=== PATIENT | male | born 1965 | race Asian ===

== ENCOUNTER → 2020-05-20 07:36 | Outpatient (CLI) | payer OTHER, SELFPAY ==
--- NOTE | 2020-05-20 | DI.MRI.S_ITS ---
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 After the administration of contrast, axial 3D VIBE of the cranial vasculature and brain. Brain MRA: Non-contrast 3-D time of flight MR angiogram, with multiple molrltz-ifebqvvgz-ayenfwkero (MIP) reformats performed. Neck MRA: Axial and sagittal TruFISP through the neck. Coronal dynamic MR angiogram during administration of contrast in the arterial and venous phases, with 3-dimenstional uihxjmw-ysdasbuqi-rzwqzelsyh (MIP) reformats constructed from subtraction images. COMPARISON: None. FINDINGS: Image quality: Excellent. BRAIN: CSF spaces: Ventricles are normal in size and shape. Basal cisterns are patent. No extra-axial fluid collections. Brain: Focus of increased T1 and increased T2 signal in the right aspect of the brainstem at the pontomedullary junction compatible with subacute hemorrhage (extracellular methemoglobin). Brainstem bleed measures approximately 0.8 x 1.0 x 1.5 cm. Parekh-white matter interface is normal. Diffusion weighted images show no acute ischemic insults. Brainstem appears normal. Normal intravascular flow voids are present. No abnormal intracranial enhancement. Skull and face: Calvarial marrow signal is normal. Orbits appear normal. Sinuses: Sinuses are clear. Fluid signal noted in the right mastoid air cells. BRAIN MR ANGIOGRAM: Anterior circulation: Intracranial internal carotid arteries are normal in size and enhancement. The flow within the paired anterior cerebral arteries is normal and symmetric. The flow within the middle cerebral arteries is normal and symmetric. The anterior communicating artery is seen. No stenoses, occlusions, or aneurysms. Posterior circulation: The visualized portions of the vertebral arteries demonstrate normal caliber, and join to form a normal appearing basilar artery. The flow within the posterior cerebral arteries is normal and symmetric. No stenoses, occlusions, or aneurysms. NECK MR ANGIOGRAM: Carotids: Great vessels demonstrate a conventional anatomy as they arise from the aortic arch. The origins of the common carotid arteries appear patent. The calibers and courses of both common carotid arteries are normal. The bifurcation regions appear normal bilaterally. The internal carotid arteries demonstrate normal course and caliber. Posterior circulation: The origins of the vertebral arteries appear patent. More superior portions of both vertebral arteries demonstrate normal course and caliber, and join to form a normal appearing basilar artery. Miscellaneous: Subclavian arteries appear patent. Pre-contrast images through the neck show no soft tissue abnormalities. IMPRESSION: BRAIN MRI: 1. 0.8 x 1.0 1.5 cm late subacute bleed involving the right brainstem at the pontomedullary junction. Differential diagnosis for underlying cause of bleed includes infarct with hemorrhagic transformation, underlying vascular malformation including cavernous angioma and underlying neoplasm. Recommend follow up MRI of the brain with and without contrast and 1-3 months if clinically indicated. 2. Nonspecific fluid in the right mastoid air cells. BRAIN MR ANGIOGRAM: Negative examination. NECK MR ANGIOGRAM: Negative examination. Dictated by: Chiquita Ho MD, PhD on 05/20/2020 at 11:45 Approved by: Chiquita Ho MD, PhD on 05/20/2020 at 11:58
== END ==
PROVIDERS: Referring Provider General Practice; Visit Provider General Practice
DX: I61.3 Nontraumatic intracerebral hemorrhage in brain stem (principal)
CPT/HCPCS: 70548; 70553

== ENCOUNTER → 2021-09-06 11:04 | Outpatient (CLI) | payer OTHER, SELFPAY ==
[2021-09-06 11:49] LABS: Add Manual Diff / Slide Review NO; Basophils Absolute Auto 100 /uL (0-100); Basophils Percent Auto 1.2 % (0-2); Eosinophils Absolute Auto 500 /uL (0-450); Eosinophils Percent Auto 6.7 % (2-4); Hematocrit 46.9 % (41-53); Hemoglobin 15.9 g/dL (13.5-17.5); Lymphocytes Absolute Auto 1700 /uL (1100-4500); Lymphocytes Percent Auto 22.9 % (25-40); Mean Corpuscular HGB Conc 33.9 % (30-36); Mean Corpuscular Hemoglobin 29.3 PG (26-34); Mean Corpuscular Volume 86.2 fL (80-100); Monocytes Absolute Auto 500 /uL (0-900); Monocytes Percent Auto 7.2 % (3-14); Neutrophils Absolute Auto 4700 /uL (1500-7000); Platelet Count 190 X10^3/uL (150-400); Red Blood Cell Count 5.44 X10^6/uL (4.5-5.9); Red Cell Distribution Width 13.2 % (11.6-14.8); White Blood Cell Count 7.5 X10^3/uL (4.5-11.0)
[2021-09-06 12:07] LABS: Carbon Dioxide 26 mmol/L (22-32); Chloride 103 mmol/L (98-107); HEMOLYSIS < 15 (0-50); Potassium 4.2 mmol/L (3.4-5.1); Sodium 141 mmol/L (137-145)
== END ==
PROVIDERS: PCP Physician Assistant; Referring Provider Orthopaedic Surgery; Visit Provider Orthopaedic Surgery
DX: Z01.818 Encounter for other preprocedural examination (principal); Z01.812 Encounter for preprocedural laboratory examination
CPT/HCPCS: 36415; 80051; 85025; 93005; 93010

== ENCOUNTER → 2021-09-22 11:16 | Outpatient (CLI) | payer OTHER, SELFPAY ==
[2021-09-22 13:41] LABS: COVID19 -Nasal RAPID Negative (Negative)
== END ==
PROVIDERS: PCP Physician Assistant; Visit Provider Nurse Practitioner Family
DX: Z20.822 Contact with and (suspected) exposure to COVID-19 (principal)
CPT/HCPCS: 87635

== ENCOUNTER 2021-09-23 08:34 | Observation (INO) | payer OTHER, SELFPAY ==
[2021-09-16 07:28] VITALS: BMI 35.2
[2021-09-23] VITALS (21 sets, daily range): BP systolic 91–144; BP diastolic 48–99; PULSE 61–98; RESP 8–23; TEMP 35.8–36.7; O2SAT 96–99; BMI 35.2
[2021-09-23] MEDS: LACTATED RINGERS 1,000 ML 42 ML IV ×2 (09:33→11:32)
--- NOTE | 2021-09-23 09:55 | PM.PREOP ---
Pre-operative Note COVID-19 COVID-19 status: Negative Interval Note History & Physical reviewed/Exam performed by Physician: Yes Changes to H&P: No
--- NOTE | 2021-09-23 09:57 | P.OP_ITS ---
Operative Date/Time/Diagnoses Date of procedure: 09/23/21 Time of procedure: 12:26 Pre-op diagnosis: Left knee osteoarthritis Post-op diagnosis: same Procedure & Clinicians Procedure: Left total knee arthroplasty Same procedure as scheduled: Yes Indications: The patient presents today for total knee arthroplasty after failure of conservative treatment. The nature of the procedure including the risks and benefits, alternatives, postoperative course and expected outcome were discussed and all questions answered. Consent was obtained. Operative site confirmed and marked. Surgeon: Alex Guillen New Car Inspector: Brennan Lomeli Anesthesia Type: General, Peripheral nerve block and Local Operative Notes Closure Type: primary Specimen(s): none sent Prosthetic devices, grafts, tissues, transplants, or devices: [facility] [employer] [facility] BCS: 4 femoral component, 3 tibial component, 9 mm BCS polyethylene tray and 35x9 mm round patella Applied: implant(s) Estimated Blood Loss (mL): 20 Blood products transfused: none Tourniquet time (min): 74 Procedure in detail: The patient was taken to the operative suite and placed under anesthesia. The patient was given prophylactic antibiotics prior to surgery. The patient was also given tranexamic acid, 1 g, just prior to surgery for postoperative hemostasis. The lateral knee was prepped and the joint injected with 20 mL of 1% Lidocaine with epinephrine. The knee was then prepped and draped in usual sterile fashion. The leg was exsanguinated with an Esmarch dressing and the tourniquet raised to 350 torr. A 15 cm anterior incision was made. Next a medial trivector arthrotomy was made. The extensor mechanism was marked to ensure accurate repair. Initial exposing dissection was carried out medially and laterally. The knee was then flexed and the intramedullary femoral guide rhea placed. The distal femoral cut was made in 6? of valgus at the +1 position. The femoral size was measured and the appropriate cutting block was then placed and the a nterior, posterior and chamfer cuts made. The intramedullary tibial alignment rhea was then placed. The guide was set to remove approximately 10 mm from the less affected lateral side. The proximal tibial cut was then made with an oscillating saw. All meniscus and bony debris was then removed. Posterior femoral osteophytes removed with a curved osteotome. Flexion extension gaps were checked. There was mild tightness medially which was corrected with percutaneous release of the MCL with an 18 gauge needle. This was in addition to standard soft tissue releases. The soft tissues were then injected with a combination of 20 mL of half percent Marcaine with epinephrine and 20 mL of Exparel. The trial components were then placed. The knee was then extended and the patellar thickness was measured and a cut made removing approximately 11 mm of bone. The patella was then sized and drilled. Some excess lateral bone was excised and the patellofemoral ligament released. The knee went into full extension and flexion beyond 130?. There was excellent medial-lateral balance throughout motion. Patellar tracking was excellent. The trial components were removed and the knee was cleansed with Pulsavac irrigation and dried. The final components were cemented with high viscosity vacuum mixed bone cement with antibiotics. The joint was filled with a dilute Betadine solution. The knee was held in extension and the patellar clamped until the cement was adequately cured. The knee was then irrigated. The extensor mechanism was closed with 5 interrupted #1 Vicryl sutures and a running Quill suture at approximately 90 degrees of flexion. The joint was then injected with a combination of 1 g of tranexamic acid and 20 mL of quarter percent Marcaine with epinephrine. The subcutaneous tissue was closed with 2 0 Vicryl. The skin was closed with absorbable subcuticular sutures and surgical adhesive. An Aquacel dressing and Juan Francisco wrap were then applied. The patient tolerated the procedure well and was returned to recovery room in good condition. Complications: none Post-operative Condition: stable Disposition: PACU Plan for aftercare: [facility] Protocol.
[2021-09-23] MEDS: MIDAZOLAM 2 MG/2 ML VIAL IV ×2 (10:05→10:49)
[2021-09-23] MEDS: fentaNYL 100 MCG/2 ML INJ 50 MCG IV ×2 (10:05→10:10)
--- NOTE | 2021-09-23 10:15 | DI.RAD.S_ITS ---
PROCEDURE: XR KNEE LT 1TO2V INDICATIONS: post op left toTal k-nee TECHNIQUE: 2 view(s) of the knee acquired. COMPARISON: May 25, 2020. FINDINGS: Bones: Patient is status post knee joint arthroplasty. Hardware components are in expected positions. Visualized bony structures are intact. Soft tissues: Overlying postoperative changes are noted. IMPRESSION: No acute osseous abnormality. Dictated by: Clive Rowan M.D. on 09/23/2021 at 13:30 Approved by: Clive Rowan M.D. on 09/23/2021 at 13:32
[2021-09-23] MEDS: PREGABALIN 75 MG CAPSULE PO (10:25)
[2021-09-23] MEDS: ACETAMINOPHEN 325 MG TABLET 975 MG PO (10:25)
[2021-09-23] MEDS: CELECOXIB 200 MG CAPSULE PO (10:25)
--- NOTE | 2021-09-23 10:33 | SUR.PREOP ---
1005 pt time out done for adductor canal nerve block with Dr Acosta Anesthesiologist. Pt on monior with alarms on,02 at 2l/nc, emergency equipment at bedside.
[2021-09-23] MEDS: CEFAZOLIN 1 GM VIAL 2 GM IV ×2 (10:47→19:01)
[2021-09-23] MEDS: TRANEXAMIC ACID 1,000 MG VIAL 1000 MG INJ (10:50)
[2021-09-23] MEDS: LIDOCAINE 1% W/EPI 20 ML INJ (11:05)
--- NOTE | 2021-09-23 11:10 | SUR.OPER ---
Supine on padded OR bed. Pillow under head, arms secured on padded armboards <90 degree abduction. Safety belt across torso. Non-operative leg secured with tape over blanket over lower leg. Operative leg secured in Buddy positioner. Foam padded brace at thigh of operative leg.
[2021-09-23] MEDS: BUPIVACAINE 0.25% W/ EPI (PF) 40 ML, BUPIVACAINE LIPOSOME 266 MG, SODIUM CHLORIDE 0.9% ... INJ (11:19)
[2021-09-23] MEDS: BUPIVACAINE 0.25% W/ EPI (PF) 20 ML, TRANEXAMIC ACID 1,000 MG, SODIUM CHLORIDE 0.9% 10 ML INJ (11:23)
[2021-09-23] MEDS: SODIUM CHLORIDE IRRIG SOLUTION 250 ML, POVIDONE-IODINE SPONGE STICKS 1 APPLIC IRR (11:27)
[2021-09-23] MEDS: LACTATED RINGERS 1,000 ML 100 ML IV ×2 (13:57→21:56)
[2021-09-23] MEDS: ONDANSETRON 4 MG/2 ML INJ IV ×2 (14:10→19:08)
--- NOTE | 2021-09-23 14:53 | PC.NURSE ---
1400- This student nurse was at patient's bedside explaining IS when he reported being nauseous. He began to dry heave and vomit a tiny amount of clear fluid. Per XU and RN Jacqueline 4 mg of IV Zofran was given. His gown was changed. Call light is within reach.
--- NOTE | 2021-09-23 14:55 | PC.ADMIT ---
[address] Admission Note: The patient,Flip Lee,55 y/o, was given written information regarding hospital policies, unit procedures and contact persons. Patient's smoking status: Never smoker. Pt arrived from PACU. Drowsy but oriented. Denies pain, rates numbness to BLE around knee area and below. Able to wiggle legs slightly. PPP. SCD's on and running. Oriented to room and call system. Bed alarm on. 1400: Pt reports nausea with vomiting, Zofran given. Vital Signs - 8 hr 09/23/21 09:05 09/23/21 10:05 09/23/21 10:10 Temperature 97.5 F L Pulse Rate 88 98 H 85 Respiratory Rate 16 23 8 L Blood Pressure 144/99 H 142/88 H 117/83 Pulse Oximetry 98 98 98 09/23/21 10:15 09/23/21 10:20 09/23/21 10:25 Temperature Pulse Rate 85 83 87 Respiratory Rate 13 12 18 Blood Pressure 122/85 129/86 137/98 H Pulse Oximetry 97 96 97 09/23/21 12:45 09/23/21 12:50 09/23/21 12:55 Temperature 96.6 F L Pulse Rate 75 81 74 Respiratory Rate 15 15 16 Blood Pressure 91/48 L 102/61 92/58 L Pulse Oximetry 98 96 96 09/23/21 13:00 09/23/21 13:05 09/23/21 13:10 Temperature 96.8 F L Pulse Rate 72 76 65 Respiratory Rate 15 16 14 Blood Pressure 103/69 97/63 104/62 Pulse Oximetry 97 99 97 09/23/21 13:15 09/23/21 13:21 09/23/21 13:30 Temperature 96.4 F L Pulse Rate 64 78 76 Respiratory Rate 15 16 20 Blood Pressure 98/66 112/73 105/75 Pulse Oximetry 97 98 98 09/23/21 14:00 09/23/21 14:30 Temperature 96.4 F L 96.8 F L Pulse Rate 61 77 Respiratory Rate 20 20 Blood Pressure 120/83 105/71 Pulse Oximetry 98 97
[2021-09-23] MEDS: ACETAMINOPHEN 325 MG TABLET 650 MG PO ×2 (15:49→21:52)
[2021-09-23] MEDS: OXYCODONE IR 10 MG TABLET PO ×2 (16:28→19:10)
[2021-09-23] MEDS: ATORVASTATIN 20 MG TABLET 10 MG PO (21:52)
[2021-09-23] MEDS: DOCUSATE 100 MG CAPSULE PO (21:52)
[2021-09-23] MEDS: METFORMIN HCL 500 MG TABLET PO (21:53)
[2021-09-23] MEDS: ASPIRIN EC 81 MG TABLET PO (21:53)
[2021-09-24] VITALS (9 sets, daily range): BP systolic 141–167; BP diastolic 92–104; PULSE 94–115; RESP 16–18; TEMP 36.7–37.2; O2SAT 93–97
[2021-09-24] MEDS: OXYCODONE IR 10 MG TABLET PO ×4 (00:17→08:39)
[2021-09-24] MEDS: CEFAZOLIN 1 GM VIAL 2 GM IV (03:09)
[2021-09-24 05:38] LABS: Hematocrit 41.8 % (41-53); Hemoglobin 14.2 g/dL (13.5-17.5)
[2021-09-24] MEDS: PANTOPRAZOLE DR 20 MG TABLET PO (06:06)
--- NOTE | 2021-09-24 07:43 | PM.DS.1 ---
History of Present Illness History of Present Illness Date Patient Seen: 09/24/21 Time Patient Seen: 07:43 Chief complaint: Left knee pain s/p left TKA Narrative: The patient is complaining of moderate to severe left knee pain, which he rates 7 to 9/10. He is using oxycodone and Tylenol as needed. He needs to be cleared by Physical therapy. He denies any new numbness or tingling. No known fevers, chills, night sweats. Nausea and vomiting have resolved. Discharge Providers Provider Discharge Date: 09/24/21 Primary care physician: Duke Barr PA-C Consults: 09/23/21 13:37 Consult to Discharge Planning Routine Comment: Consult to Physical Therapy Evaluate & Treat Comment: Physician Instructions: postop TKA protocol Consult to Respiratory Therapy Evaluate & Treat Comment: Physician Instructions: Evaluate and treat Discharge provider: Dayanara Willis PA-C Summary Hospital Course Discharge Diagnosis: Left knee osteoarthritis Hospital Course: Date of procedure: 09/23/21 Time of procedure: 12:26 Procedure & Clinicians Procedure: Left total knee arthroplasty Same procedure as scheduled: Yes Indications: The patient presents today for total knee arthroplasty after failure of conservative treatment.? The nature of the procedure including the risks and benefits, alternatives, postoperative course and expected outcome were discussed and all questions answered.? Consent was obtained.? Operative site confirmed and marked. Surgeon: Alex Guillen Solution Specialist: Brennan Lomeli Anesthesia Type: General, Peripheral nerve block and Local Operative Notes Closure Type: primary Specimen(s): none sent Prosthetic devices, grafts, tissues, transplants, or devices: [employer] [facility] BCS: 4 femoral component, 3 tibial component, 9 mm BCS polyethylene tray and 35x9 mm round patella Applied: implant(s) Estimated Blood Loss (mL): 20 Blood products transfused: none Tourniquet time (min): 74 Status at Discharge Cognitive/behavioral status at discharge: oriented Functional status at discharge: uses cane/walker Overall status at discharge: patient is progressing back to baseline Exam Vital Signs (past 8 hours): - 09/24/21 00:23 09/24/21 05:00 Temperature 98.6 F 99.0 F Pulse Rate 96 H 94 H Respiratory Rate 16 16 Blood Pressure 145/94 H 145/98 H Pulse Oximetry 97 95 Oxygen Delivery Method Room Air,CPAP Oxygen Flow Rate 0 Narrative Exam Narrative: Pleasant 55-year-old male, resting comfortably in bed, no acute distress. Dressing is clean, dry, intact. Bilateral lower extremity motor functions are grossly intact. Sensation is grossly intact to light touch bilateral lower extremities. Bilateral calves are soft, nontender to palpation. Objective Labs Result Diagrams: 09/24/21 04:42 Labs: Laboratory Results - last 24 hr 09/24/21 04:42 Hgb 14.2 Hct 41.8 PFSH Medical History Cerebral cavernous malformation Encephalomalacia GERD (gastroesophageal reflux disease) HLD (hyperlipidemia) HTN (hypertension) ICH (intracerebral hemorrhage) (05/2020) Nasal polyps DIANNE on CPAP Osteoarthritis Pre-diabetes Surgical History Hx of arthroscopy of left knee Hx of arthroscopy of right knee Hx of bilateral cataract extraction Hx of tooth extraction (~05/2021) Social History household members: spouse and children Smoking Status: Never smoker alcohol intake: current Discharge Assessment & Plan Assessment and Plan Assessment: Stable status post left total knee arthroplasty Plan of Treatment: -mobilize with PT. weightbearing as tolerated with front wheel walker -continue with current pain regimen and DVT prophylaxis -planning on DC home today if cleared by PT Discharge Plan Discharge Plan Patient Disposition: Home Discharge orders & Medications Discharge Orders: Discharge (Order); Ordered 09/24/21 Ordered By: Dayanara Willis Prescriptions: New acetaminophen 500 mg capsule 500 mg PO Q4H MDD Max 6 tabs per day PRN (Reason: fever or pain) Qty: 90 RF: 0 aspirin 81 mg Tablet,Delayed Release (Dr/Ec) 81 mg PO BID PRN (Reason: X6 weeks to prevent blood clots) Qty: 90 RF: 0 docusate sodium 100 mg Capsule 100 mg PO BID PRN (Reason: Constipation from narcotic pain meds) Qty: 30 RF: 0 hydroxyzine pamoate [Vistaril] 25 mg capsule 25 mg PO QID PRN (Reason: Pain/spasms/nausea) Qty: 30 RF: 0 oxycodone 5 mg Tablet 5 mg PO Q3HR PRN (Reason: Pain, Moderate (4-6)) Qty: 42 RF: 0 Continued metformin 500 mg Tablet 500 mg PO BEDTIME RF: 0 meloxicam 15 mg Tablet 15 mg PO DAILY RF: 0 sildenafil [Viagra] 100 mg Tablet 100 mg PO DAILY PRN (Reason: Sexual Activity) RF: 0 simvastatin 20 mg Tablet 20 mg PO BEDTIME RF: 0 omeprazole 20 mg Capsule,Delayed Release(Dr/Ec) 20 mg PO DAILY RF: 0 hydrochlorothiazide 25 mg Tablet 25 mg PO DAILY RF: 0 lisinopril 40 mg Tablet 40 mg PO DAILY RF: 0 fluticasone propionate 50 mcg/actuation Placida,Suspension 1 spray INTRANASAL BID RF: 0 Follow up/Referrals: Duke Barr PA-C [Primary Care Provider] - Alex Guillen MD [Physician] - 2 Weeks Diet/Activity/Treatments Diet: Regular Activity: May progress weight-bearing and range of motion as tolerated. Cold/Heat Therapy: May use ice for 20 minutes at a time as needed for pain and swelling. Other treatments: Use ibuprofen 400 mg and Tylenol 500 mg every 4 hours in addition to the prescribed pain medication. Skin/Wound/Dressing Care Report to your healthcare provider any signs of infection, such as:: chills, fever, increased pain, unusual drainage and unusual redness Dressing: May keep dressing in place for 10-14 days if intact. May shower over dressing. Visit Report/Discharge Packet Instructions: DI for Knee Replacement Discharge Data Primary Care Provider: Duke Barr Attending Provider: Alex Guillen Quality VTE Deep Vein Thrombosis/Pulmonary Embolism Present on Admission: No
[2021-09-24] MEDS: ASPIRIN EC 81 MG TABLET PO ×2 (08:22→20:52)
[2021-09-24] MEDS: lisinopriL 20 MG TABLET 40 MG PO (08:22)
[2021-09-24] MEDS: ACETAMINOPHEN 325 MG TABLET 650 MG PO ×3 (08:23→20:53)
[2021-09-24] MEDS: hydrOXYzine pamoate 25 MG CAPSULE PO (08:23)
[2021-09-24] MEDS: hydroCHLOROthiazide 25 MG TABLET PO (08:23)
[2021-09-24] MEDS: DOCUSATE 100 MG CAPSULE PO ×2 (08:24→20:52)
[2021-09-24] MEDS: SODIUM CHLORIDE 0.9% FLUSH 10 ML IV (08:39)
[2021-09-24] MEDS: FLUTICASONE 120 SPRAY/16 GM SPRAY.SUSP NASAL (08:40)
--- NOTE | 2021-09-24 09:05 | PT.IIE ---
Current Diagnoses Unilateral primary osteoarthritis, right knee (09/23/21) Unilateral primary osteoarthritis, left knee (09/23/21) Surgery Performed Operation Date: 09/23/21 10:15 Actual Procedures p Total Knee Arthroplasty(Left) - Alex Guillen MD Medical History (Last Reviewed 09/24/21 @ 07:45 by Dayanara Willis PA-C) Cerebral cavernous malformation Encephalomalacia GERD (gastroesophageal reflux disease) HLD (hyperlipidemia) HTN (hypertension) ICH (intracerebral hemorrhage) (05/2020) Nasal polyps DIANNE on CPAP Osteoarthritis Pre-diabetes Physical Therapy Inpatient Evaluation/Re-Eval M1 PT/OT-IP Prior Functional Status Start: 09/24/21 12:32 Freq: NEEDED Status: Active Protocol: Document 09/24/21 09:05 AB (Rec: 09/24/21 12:54 AB [id number]) Medical Review Prior Functional Status Medical History Reviewed Yes Communication agreeable to do PT Mobility and Gait pt stated that he is independent with all mobilities and ambulation without AD but occasionally uses a SPC Social History Household Members spouse,children Living Arrangements House Number of Floors (Floors) 3 or More Floors Number of Stairs To Enter/Railing? pt will stay on first level of the house Home Environment Standard Height Toilet,Walk in Shower,Built-In Shower Seat Home Equipment Front Wheel Walker,Straight Cane,Hand Held Shower,Grab Bars In Shower Additional Social History Comment pt stated that his son and spouse will assist him at home M2 PT-IP Current Condition Start: 09/24/21 12:32 Freq: NEEDED Status: Active Protocol: Document 09/24/21 09:05 AB (Rec: 09/24/21 12:54 AB [email or web address]) Physical Therapy Current Condition Current Condition Evaluation Date 09/24/21 Treatment Diagnosis s/p L TKA; difficulty in walking Onset Date 09/23/21 M3 PT-IP Subjective Start: 09/24/21 12:32 Freq: NEEDED Status: Active Protocol: Document 09/24/21 09:05 AB (Rec: 09/24/21 12:54 AB [email or web address]) Subjective Physical Therapy Visit Type Type Initial Evaluation Visit Start Time 09:05 Visit Stop Time 10:04 Total Visit Minutes 59 Number of CAR LUBRICATOR Visits 0 Physical Therapy Visit Comments Patient Comments agreeable to do PT Therapy Pain Assessment Pain When Pain Assessed At Rest Pain Present Pain Present Pain Reported Location Left Knee Intensity 9 Scale Used increased to 10/10 with mobility Pain Behaviors Guarding,Holding Area,Wincing Pain Management Techniques Apply Cold,Modification of Treatment,Re-positioning, Timing of Activity with Medications M4 PT-IP Mobility and Gait Start: 09/24/21 12:32 Freq: NEEDED Status: Active Protocol: Document 09/24/21 09:05 AB (Rec: 09/24/21 12:54 AB [id number]) PT-Bed Mobility Assessment Supine to Sit Supine to Sit Moderate Assistance,Maximum Assistance,1 Person Assistance PT-Transfer Assessment Sit to and From Stand Sit to and from Stand Maximum Assistance,1 Person Assistance,Use of Upper Extremities Equipment Transfer Assistive Device Gait Belt,Front Wheeled Walker Orthotic/Prosthetic Devices or Brace: No Transfers Transfer Destination Chair Transfer Technique ambulated Transfer Ability Level of Assist Maximum Assistance,1 Person Assistance,Use of Upper Extremities Comments Mobility Comments BP: 156/99. nurse stated that pt received BP medications already. pt with c/o increase L knee pain with movement 10/10 but agreed to do PT. completed supine to sit mod A to max A and max cues. pt was able to sit on EOB CGA. completed sit to stand max A and cues. ambulated to the chair max A and max cues ~12 ft using FWW. c/o increase pain. (+) L knee buckling x 2 requiring max A. cued for quads activation. positioned pt on chair. call light and table placed within reach. no c/o dizziness . BP at end of tx session: 174/98 Gait Assessment Gait Gait Assistance Required: Maximum Assistance Distance (Feet) 12 Able to Maintain Weight Bearing Status Yes During Gait Assistive Devices Assistive Device Gait Belt,Front Wheeled Walker Orthotic/Prosthetic Devices or Brace: No Gait Deviations General Gait Pattern Antalgic,Decreased Stride Length,Decreased Feet Clearance,Step-to Gait,Wide Based Gait Factors Limiting Gait Function Factors Limiting Gait Function Decreased Activity Tolerance, Decreased Strength,Difficulty Following Directions,Limited Range of Motion,Pain,Poor Balance,Poor Safety Awareness Comments Gait Comments presents with wide based antalgic gait ; (+)L knee buckling x 2 PT-Balance Assessment Sitting Balance and Reactions Static Sitting Balance Ability Good Dynamic Sitting Balance Ability Fair Standing Balance and Reactions Static Standing Balance Ability Poor Dynamic Standing Balance Ability Poor Device Used FWW M5 PT-IP Objective Assessments Start: 09/24/21 12:32 Freq: NEEDED Status: Active Protocol: Document 09/24/21 09:05 AB (Rec: 09/24/21 12:54 AB [email or web address]) Orientation Orientation/Cognition Level of Alertness Alert Orientation Name,Place,Situation Safety Awareness Decreased Safety Awareness Gross Range of Motion Lower Extremity ROM Assessment Left Impaired Impairments L knee flexion: ~ 40 deg PROM L knee extension: 20 deg less to 0 Strength Lower Extremity Strength Assessment Left Impaired Knee 3-/5 Sensation Assessment Sensation Gross Sensation WNL Muscle Tone Muscle Tone WNL Yes M6 PT-IP Treatment Start: 09/24/21 12:32 Freq: NEEDED Status: Active Protocol: Document 09/24/21 09:05 AB (Rec: 09/24/21 12:54 AB [email or web address]) Physical Therapy Treatment Education Education Provided Precautions,Weight Bearing Status,Post-Op Packet,Safety M7 PT-IP Assessment and Plan Start: 09/24/21 12:32 Freq: NEEDED Status: Active Protocol: Document 09/24/21 09:05 AB (Rec: 09/24/21 12:54 AB [id number]) PT Summary Assessment and Plan Potential Rehabilitation Potential Fair Status of Condition at Evaluation Evolving Summary Impairments Pain,ROM,Strength,Balance, Coordination,Sensation,Tone, Cognition,Bed Mobility, Transfers,Gait,Activity Tolerance Assessment Summary pt requiring max A with mobility using FWW. c/o 10/10 L knee pain with mobility and has (+) L knee buckling during ambulation using FWW requiring max A and max cues. will continue to assess progress. caregiver training will be conducted when appropriate. spouse stated that she and her son will alternate to assist pt and / assist will be available. Goals Bed Mobility Goal Standby Assistance Transfer Goal Standby Assistance,Front Wheeled Walker Gait Goal Standby Assistance,Front Wheel Walker Gait Distance 125 Days to Meet Goals 5 Frequency of Treatment Frequency Of Treatment Twice a Day Treatment Plan Physical Therapy Treatment Plan Bed Mobility Training,Transfer Training,Gait Training, Therapeutic Exercise,Balance Retraining,Post Op Education, Discharge Planning,Hot or Cold Pack,Neuromuscular Re-ed, Coordination Retraining,Manual Therapy Weight Bearing Status Weight Bearing Status Weight Bear as Tolerated Allowed Weight Bearing Amount (enter % LLE WBAT or #) (%) Recommendations To Nursing Amount of Assist Needed 2 Person Assist Discharge Recommendations PT Discharge Recommendations Home with 24/ Assist Available,Home Health Transportation Needs at Discharge Private Vehicle
--- NOTE | 2021-09-24 09:17 | CM.DANOTE ---
Addendum entered by Isaura Jackson R.N. 09/24/21 15:24: Checked in with patient, and met , Gretel. Patient and spouse confirmed that their son can assist at home as well. Mentioned home health in case it is difficult for patient to do outpatient P.T. He will be working with P.T. again this pm, and in the am. Plan is for discharge tomorrow, if not able to go home this pm. Original Note: DCP: Case received, EMR reviewed and met with patient. Introduced self and role. Was able to obtain information regarding patient's baseline activity status prior to his surgery. DCP assessment completed with information currently available. Patient is a 55 year old male who admitted yesterday morning to the care of the orthopedic team. PCP: Dr. Barr. Payer: confirmed: Crystal Ramirez. Patient came to the hospital for a surgical procedure. He had left total knee arthroplasty. Patient has history of osteoarthritis. Met with patient in his room. He was sitting up in bed, alert and oriented. Confirmed that he resides in [place] with his spouse, Gretel. He confirmed that she will be able to assist him when he goes home. He is independent at his baseline, drives and uses no DME supplies. He is retired [employer]. He stated that he is also set up with outpatient P.T. P: Patient is to discharge home today after working with P.T. Isaura Jackson RN/Tattoo Designer Discharge Planning/Care Management CM Discharge Assessment Start: 09/24/21 09:16 Freq: Status: Active Protocol: Document 09/24/21 09:16 (Rec: 09/24/21 09:17 [id number]) Discharge Planning Assessment Assigned Latin Professor Isaura Jackson RN/Tattoo Designer Advance Directives? No History Provided By Patient Prior Living Arrangements House Household Members spouse,children Type of transporation used prior to Drives own vehicle admit Independent with ADL's Yes Is patient alert and oriented? Yes Caregiver for Another No Patient/Family Preference OP PT Therapy Barriers to Discharge No Discharge Plan Home Transportation Arrangement Family Referrals Initiated None needed Whiteboard Updated in Patient Room with Yes name and ext. # of Latin Professor Review Status In Process Next Review Type Continued Stay Review Pre-Anesthesia Assessment Start: 09/16/21 07:28 Freq: Status: Complete Protocol: Document 09/16/21 07:28 [facility] (Rec: 09/16/21 07:54 [facility] [id number]) Pre-Anesthesia Assessment Preferred Name Flip Patient Information Reviewed Via Phone Assessment Assessment Completed With Patient Diagnostic Results CBC,EKG Comment Labs/EKG @ 09/06/21, COVID screen @ 09/22/21 Primary Care Provider Duke Barr Medical Clearance Received Yes Seen Specialist in Last 12 Months Yes Specialist Seen Opthamologist/Loading Rack Supervisor, Orthopedist,Other Comment PCP moody, Neurosurgeon visit w/recommendations scanned Primary Language Turkmen Preferred Language Turkmen Lime Mixer Required No Height 5 ft 4 in Weight 205 lb Body Mass Index (BMI) 35.2 Hearing Ability Normal Visual Assist Glasses Dentition Type Teeth, Natural Present Barriers to Learning Auditory Other Aids Yes: CPAP Hx Anesthesia Reactions No Hx Family Anesthesia Reaction No Hx Malignant Hyperthermia No Hx Blood Transfusions No Anesthesia Review Requested Yes: Surgeon requested re cerebral malformation alcohol intake current Alcohol Intake Frequency Other: Occasional Smoking Status Never smoker Substance Use Type marijuana Comment Pt advised not to smoke marijuana 24 hours prior Pain Present Pain Reported Musculoskeletal Symptoms Abnormal Gait,Difficulty Walking,Joint Pain History of Falling (Recent or History of No ) Patient is completely paralyzed or No completely immobile Mental Status Oriented to own ability Is patient on oxygen? No Does patient have ALMONTE/SOB No Hx Sleep Apnea Yes CPAP/BIPAP use prescribed and used routinely Will Bring CPAP/BIPAP DOS Yes Currently Taking a Beta Staci No Can You Climb a Flight of Stairs Without Yes SOB Hx Chest Pain No Hx SOB No Hx Syncope or Dizziness No Anti-Coagulant Therapy No Has a Layup Worker No Cardiac Testing No Hx Pacemaker/ICD No Pacemaker Rep Required? No Cardiac Clearance Received Not Applicable Diet Type At Home Regular dysphagia No Gastrointestinal Symptoms Reflux Bladder Pattern Frequency Urinary Catheter Present No Hx Urinary Self Catheterization No Diabetes No: Pre-diabetes per pt, takes metformin Presence of External or Internal Medical Yes: Bilat IOLs, CPAP Devices Have you had any close contact with No someone diagnosed with COVID-19? Received a COVID vaccine? Yes: J&J Marital Status Lives With spouse,children Prior Living Arrangements House Support System Spouse Does the Patient Have Assistance After Yes Surgery Patient Discharge Plan Description Return Home Comment Pt not advised on length of stay per surgeon Feels Safe in Current Environment Yes Been Physically Hurt or Threatened By a No Person in Current Environment Do you have thoughts of harming yourself None or others? Are you currently considering suicide? No Do you have a plan to hurt yourself or No Plan others? Do You Have Any Spiritual Beliefs That No May Affect Your HC Choices? Do You Have Any Cultural Practices That No May Affect Your HC Choices? Comment Jehovah'S Witness Who Can We Speak to About Patient's Care Family, friends Identifying Code for Release of Patient Declines to issue Information Health Care Proxy/Next of Kin Gretel () Health Care Proxy Emergency Contact Name Gretel () Emergency Contact Advance Directives? No Power of Research Program Internship No PAC Instructions Bring CPAP/BIPAP,Diabetes instructions,Durable medical equipment,Medications to take/ avoid,Nasal antibiotic,No ETOH /petroleum product on skin DOS ,NPO,Post-op transportation, Sensory aids,Sturdy shoes/ comfortable clothes,Do not bring valuables and remove jewelry
[2021-09-24] MEDS: HYDROMORPHONE 2 MG TABLET PO ×4 (10:34→20:52)
[2021-09-24] MEDS: hydrOXYzine pamoate 25 MG CAPSULE 50 MG PO ×2 (13:36→17:35)
--- NOTE | 2021-09-24 14:03 | PT.IPTN ---
Current Diagnoses Unilateral primary osteoarthritis, right knee (09/23/21) Unilateral primary osteoarthritis, left knee (09/23/21) Surgery Performed Operation Date: 09/23/21 10:15 Actual Procedures p Total Knee Arthroplasty(Left) - Alex Guillen MD Physical Therapy Treatment Note M2 PT-IP Current Condition Start: 09/24/21 12:32 Freq: NEEDED Status: Active Protocol: Document 09/24/21 09:05 AB (Rec: 09/24/21 12:54 [email or web address] Therapy Current Condition Current Condition Evaluation Date 09/24/21 Treatment Diagnosis s/p L TKA; difficulty in walking Onset Date 09/23/21 M3 PT-IP Subjective Start: 09/24/21 12:32 Freq: NEEDED Status: Active Protocol: Document 09/24/21 14:03 AB (Rec: 09/24/21 15:57 AB [id number]) Subjective Physical Therapy Visit Type Type Treatment Note Visit Start Time 14:03 Visit Stop Time 14:55 Total Visit Minutes 52 Number of CONCERT SINGER Visits 0 Physical Therapy Visit Comments Patient Comments agreeable to do PT Therapy Pain Assessment Pain When Pain Assessed At Rest Pain Present Pain Present Pain Reported Location Left Knee Intensity 6 Scale Used 7/10 after tx Pain Behaviors Facial Grimacing,Guarding, Wincing Pain Management Techniques Apply Cold,Distraction, Elevation,Modification of Treatment,Re-positioning, Timing of Activity with Medications M4 PT-IP Mobility and Gait Start: 09/24/21 12:32 Freq: NEEDED Status: Active Protocol: Document 09/24/21 14:03 AB (Rec: 09/24/21 15:57 AB [id number]) PT-Bed Mobility Assessment Sit to Supine Sit to Supine Maximum Assistance,1 Person Assistance PT-Transfer Assessment Sit to and From Stand Sit to and from Stand Moderate Assistance,1 Person Assistance,Use of Upper Extremities Equipment Transfer Assistive Device Gait Belt,Front Wheeled Walker Orthotic/Prosthetic Devices or Brace: No Transfers Transfer Destination Bed Transfer Technique ambulated Transfer Ability Level of Assist Moderate Assistance,1 Person Assistance,Use of Upper Extremities Comments Mobility Comments pt sitting on chair. completed LLE heel slides, LAQs with 5 sec hold. completed sit to stand from chair mod A and cues. ambulated in room using FWW mod A ~ 25 ft and cues for L quads activation. presents with increase UE use on FWW for support, decrease LE elevation and step lenght and very slow allie. c/o increase pain with weight bearing 05/29. caregiver training conducted. spouse was able to don safety belt on pt. assisted pt with sit to stand ambulated pt towards the bed ~ 15 ft mod A. pt cues for steadiness and slowing down with turning. completed sit to supine with spouse assisting pt for LE elevation to bed. positioned pt on the bed. call light and table placed within reach. continues to c/o increase LLE pain of /. ice pack provided Gait Assessment Gait Gait Assistance Required: Moderate Assistance Distance (Feet) 25 Able to Maintain Weight Bearing Status Yes During Gait Assistive Devices Assistive Device Gait Belt,Front Wheeled Walker Orthotic/Prosthetic Devices or Brace: No Gait Deviations General Gait Pattern Antalgic,Decreased Stride Length,Decreased Feet Clearance,Step-to Gait Factors Limiting Gait Function Factors Limiting Gait Function Decreased Activity Tolerance, Decreased Strength,Limited Range of Motion,Pain,Poor Balance,Poor Safety Awareness M5 PT-IP Objective Assessments Start: 09/24/21 12:32 Freq: NEEDED Status: Active Protocol: Document 09/24/21 09:05 AB (Rec: 09/24/21 12:54 AB [id number]) Orientation Orientation/Cognition Level of Alertness Alert Orientation Name,Place,Situation Safety Awareness Decreased Safety Awareness Gross Range of Motion Lower Extremity ROM Assessment Left Impaired Impairments L knee flexion: ~ 40 deg PROM L knee extension: 20 deg less to 0 Strength Lower Extremity Strength Assessment Left Impaired Knee 3-/5 Sensation Assessment Sensation Gross Sensation WNL Muscle Tone Muscle Tone WNL Yes M6 PT-IP Treatment Start: 09/24/21 12:32 Freq: NEEDED Status: Active Protocol: Document 09/24/21 14:03 AB (Rec: 09/24/21 15:57 [email or web address]) Physical Therapy Treatment Exercises Exercises Heel Slides Education Education Provided Safety Other Treatments Other Treatment Performed LAQs LLE with 5 sec hold M7 PT-IP Assessment and Plan Start: 09/24/21 12:32 Freq: NEEDED Status: Active Protocol: Document 09/24/21 14:03 AB (Rec: 09/24/21 15:57 [email or web address]) PT Summary Assessment and Plan Potential Rehabilitation Potential Fair Summary Impairments Pain,ROM,Strength,Balance, Coordination,Sensation,Tone, Cognition,Bed Mobility, Transfers,Gait,Activity Tolerance Progress Towards Goals Slow Progress due to Pain Assessment Summary pt continues to c/o increase L knee pain -05/29 affecting mobility and activity tolerance. Pt only able to tolerate 25 ft of ambulation at a time with heavy use of FWW for support and also requires mod A and max cues. caregiver training conducted. Further training set up for tomorrow at 9 am. will continue to assess progress. Goals Bed Mobility Goal Standby Assistance Transfer Goal Standby Assistance,Front Wheeled Walker Gait Goal Standby Assistance,Front Wheel Walker Gait Distance 125 Days to Meet Goals 5 Frequency of Treatment Frequency Of Treatment Twice a Day Treatment Plan Physical Therapy Treatment Plan Bed Mobility Training,Transfer Training,Gait Training, Therapeutic Exercise,Balance Retraining,Post Op Education, Discharge Planning,Hot or Cold Pack,Neuromuscular Re-ed, Coordination Retraining,Manual Therapy Weight Bearing Status Weight Bearing Status Weight Bear as Tolerated Allowed Weight Bearing Amount (enter % LLE WBAT or #) (%) Recommendations To Nursing Amount of Assist Needed 1 Person Assist Discharge Recommendations PT Discharge Recommendations Home with 12/06 Assist Available,Home Health Transportation Needs at Discharge Private Vehicle
--- NOTE | 2021-09-24 17:46 | PC.NURSE ---
Assumed care of pt at 0700. Resting in bed during hand-off. P.T. Eval. See P.T. documentation for details. Oxycodone not effectively controlling pain level. Dilaudid PO given, Pt reports Dilaudid is more effective. PA notified. Per P.T. Pt is not safe to go today. PA aware.
[2021-09-24] MEDS: ATORVASTATIN 20 MG TABLET 10 MG PO (20:52)
[2021-09-24] MEDS: METFORMIN HCL 500 MG TABLET PO (20:52)
[2021-09-25] MEDS: PANTOPRAZOLE DR 20 MG TABLET PO (05:41)
[2021-09-25] MEDS: HYDROMORPHONE 2 MG TABLET 4 MG PO ×2 (05:42→10:11)
[2021-09-25 05:54] VITALS: BP 151/104; PULSE 116; RESP 18; TEMP 37.5; O2SAT 96
[2021-09-25 08:00] VITALS: BP 151/103; PULSE 109; RESP 18; TEMP 38.3; O2SAT 93
[2021-09-25 08:13] VITALS: BP 151/104
[2021-09-25] MEDS: ACETAMINOPHEN 325 MG TABLET 650 MG PO (08:13)
[2021-09-25] MEDS: hydrOXYzine pamoate 25 MG CAPSULE 50 MG PO ×2 (08:13→12:09)
[2021-09-25] MEDS: ASPIRIN EC 81 MG TABLET PO (08:13)
[2021-09-25] MEDS: FLUTICASONE 120 SPRAY/16 GM SPRAY.SUSP NASAL (08:13)
[2021-09-25] MEDS: lisinopriL 20 MG TABLET 40 MG PO (08:13)
[2021-09-25] MEDS: DOCUSATE 100 MG CAPSULE PO (08:13)
[2021-09-25] MEDS: hydroCHLOROthiazide 25 MG TABLET PO (08:13)
[2021-09-25] MEDS: SODIUM CHLORIDE 0.9% FLUSH 10 ML IV (08:15)
--- NOTE | 2021-09-25 09:36 | PM.DS.1 ---
History of Present Illness History of Present Illness Date Patient Seen: 09/25/21 Time Patient Seen: 08:50 Chief complaint: Left knee pain s/p left TKA Narrative: The history and physical is contained in the chart previously completed note. Please refer to that note for this information. Discharge Providers Provider Date of admission: 09/23/21 Discharge Date: 09/25/21 Primary care physician: Duke Barr PA-C Consults: 09/23/21 13:37 Consult to Discharge Planning Routine Comment: Consult to Physical Therapy Evaluate & Treat Comment: Physician Instructions: postop TKA protocol Consult to Respiratory Therapy Evaluate & Treat Comment: Physician Instructions: Evaluate and treat Discharge provider: Jesus Kaufman MD Summary Hospital Course Discharge Diagnosis: 1. Left knee osteoarthritis 2. Essential hypertension 3. Sinus tachycardia Hospital Course: The patient was admitted to the hospital and taken directly to the operating room on September 23, 2021 where he underwent a left total knee replacement. He had substantial pain control issues postoperatively. His blood pressure was elevated postoperatively. The patient does have preoperative hypertension and this was felt to represent exacerbation because of his poor pain control. He also had persistent tachycardia, an EKG was obtained on postoperative day 2 which showed sinus tachycardia without significant arrhythmia other than fast heart rate. Status at Discharge Cognitive/behavioral status at discharge: at baseline, oriented Functional status at discharge: uses cane/walker Overall status at discharge: patient is progressing back to baseline Time Spent with Patient Time spent: Less than 30 minutes Exam Vital Signs (past 8 hours): - 09/25/21 05:54 09/25/21 08:00 09/25/21 08:13 Temperature 99.5 F 101 F H Pulse Rate 116 H 109 H Respiratory Rate 18 18 Blood Pressure 151/104 H 151/103 H 151/104 H Pulse Oximetry 96 93 Oxygen Delivery Method Room Air Oxygen Flow Rate 0 Narrative Exam Narrative: On physical examination, lungs are clear, heart is regular but tachycardic, no murmers. Abdomen benign. The left lower extremity dressing is intact without surrounding erythema or significant drainage. Calf is soft. Light touch and motion are intact in the left lower extremity. Objective Labs Result Diagrams: 09/24/21 04:42 [facility] Medical History Cerebral cavernous malformation Encephalomalacia GERD (gastroesophageal reflux disease) HLD (hyperlipidemia) HTN (hypertension) ICH (intracerebral hemorrhage) (05/2020) Nasal polyps DIANNE on CPAP Osteoarthritis Pre-diabetes Surgical History Hx of arthroscopy of left knee Hx of arthroscopy of right knee Hx of bilateral cataract extraction Hx of tooth extraction (~05/2021) Social History household members: spouse and children Smoking Status: Never smoker alcohol intake: current Discharge Assessment & Plan Assessment and Plan Assessment: Stable status post left total knee arthroplasty with likely hemodynamic response to pain. Mild low-grade temperatures. Plan of Treatment: -mobilize with PT. weightbearing as tolerated with front wheel walker -continue with current pain regimen and DVT prophylaxis -planning on DC home today if cleared by PT -follow-up in 10-[address] Alex Guillen Discharge Plan Discharge Plan Patient Disposition: Home Discharge orders & Medications Discharge Orders: Discharge (Order); Ordered 09/24/21 Ordered By: Dayanara Willis Prescriptions: New acetaminophen 500 mg capsule 500 mg PO Q4H MDD Max 6 tabs per day PRN (Reason: fever or pain) Qty: 90 RF: 0 aspirin 81 mg Tablet,Delayed Release (Dr/Ec) 81 mg PO BID PRN (Reason: X6 weeks to prevent blood clots) Qty: 90 RF: 0 docusate sodium 100 mg Capsule 100 mg PO BID PRN (Reason: Constipation from narcotic pain meds) Qty: 30 RF: 0 hydroxyzine pamoate [Vistaril] 25 mg capsule 25 mg PO QID PRN (Reason: Pain/spasms/nausea) Qty: 30 RF: 0 oxycodone 5 mg Tablet 5 mg PO Q3HR PRN (Reason: Pain, Moderate (4-6)) Qty: 42 RF: 0 Continued metformin 500 mg Tablet 500 mg PO BEDTIME RF: 0 meloxicam 15 mg Tablet 15 mg PO DAILY RF: 0 sildenafil [Viagra] 100 mg Tablet 100 mg PO DAILY PRN (Reason: Sexual Activity) RF: 0 simvastatin 20 mg Tablet 20 mg PO BEDTIME RF: 0 omeprazole 20 mg Capsule,Delayed Release(Dr/Ec) 20 mg PO DAILY RF: 0 hydrochlorothiazide 25 mg Tablet 25 mg PO DAILY RF: 0 lisinopril 40 mg Tablet 40 mg PO DAILY RF: 0 fluticasone propionate 50 mcg/actuation [place],Suspension 1 spray INTRANASAL BID RF: 0 Medication counseling provided by Pharmacist: Yes Follow up/Referrals: Duke Barr PA-C [Primary Care Provider] - Alex Guillen MD [Physician] - 2 Weeks Diet/Activity/Treatments Diet: Regular Activity: May progress weight-bearing and range of motion as tolerated. Cold/Heat Therapy: May use ice for 20 minutes at a time as needed for pain and swelling. Other treatments: Use ibuprofen 400 mg and Tylenol 500 mg every 4 hours in addition to the prescribed pain medication. Skin/Wound/Dressing Care Report to your healthcare provider any signs of infection, such as:: chills, fever, increased pain, unusual drainage and unusual redness Dressing: May keep dressing in place for 10-14 days if intact. May shower over dressing. Visit Report/Discharge Packet Instructions: DI for Knee Replacement Discharge Data Primary Care Provider: Duke Barr Attending Provider: Alex Guillen Quality VTE Deep Vein Thrombosis/Pulmonary Embolism Present on Admission: No
--- NOTE | 2021-09-25 09:45 | PT.IPTN ---
Current Diagnoses Unilateral primary osteoarthritis, right knee (09/23/21) Unilateral primary osteoarthritis, left knee (09/23/21) Surgery Performed Operation Date: 09/23/21 10:15 Actual Procedures p Total Knee Arthroplasty(Left) - Alex Guillen MD Physical Therapy Treatment Note M2 PT-IP Current Condition Start: 09/24/21 12:32 Freq: NEEDED Status: Discharge Protocol: Document 09/24/21 09:05 AB (Rec: 09/24/21 12:54 [facility] Physical Therapy Current Condition Current Condition Evaluation Date 09/24/21 Treatment Diagnosis s/p L TKA; difficulty in walking Onset Date 09/23/21 M3 PT-IP Subjective Start: 09/24/21 12:32 Freq: NEEDED Status: Discharge Protocol: Document 09/25/21 09:45 AB (Rec: 09/25/21 14:40 AB [id number]) Subjective Physical Therapy Visit Type Type Treatment Note Visit Start Time 09:45 Visit Stop Time 10:16 Total Visit Minutes 31 Number of PRODUCTION TRAINER Visits 0 Physical Therapy Visit Comments Patient Comments agreeable to do PT Therapy Pain Assessment Pain When Pain Assessed At Rest Pain Present Pain Present Pain Reported Location Left Knee Intensity 5 Scale Used Numeric (0 - 10) Pain Behaviors Guarding,Holding Area, Restlessness,Wincing Pain Management Techniques Apply Cold,Distraction, Modification of Treatment,Re- positioning,Timing of Activity with Medications M4 PT-IP Mobility and Gait Start: 09/24/21 12:32 Freq: NEEDED Status: Discharge Protocol: Document 09/25/21 09:45 AB (Rec: 09/25/21 14:40 AB [id number]) PT-Transfer Assessment Sit to and From Stand Sit to and from Stand Contact Guard Assistance, Minimal Assistance,1 Person Assistance,Use of Upper Extremities Equipment Transfer Assistive Device Gait Belt,Front Wheeled Walker Orthotic/Prosthetic Devices or Brace: No Comments Mobility Comments Checked on pt earlier for caregiver training but pt was able to have EKG done. checked back on pt and pt sitting on chair and agreed to do PT. spouse in room for caregiver training. pt's BP continues to be elevated: 178/ 107. pt completed heel slide seated on chair prior to mobility. spouse was able to put safety belt on pt and assisted pt with sit to stand, ambulation in room using FWW ~ 40 ft CGA to initial min A. continues to present with increase UE weight bearing on FWW and pt tends to tense up whole body during standing and ambulation . pt with difficulty with sit to stand. sit<>stand activity training conducted x 5 reps. PT demonstrated and instructed pt on techniques. pt completed min A but able to complete CGA towards end of repetitions. Gait Assessment Gait Gait Assistance Required: Contact Guard Assist,Minimum Assistance,1 Person Assist Distance (Feet) 40 Able to Maintain Weight Bearing Status Yes During Gait Assistive Devices Assistive Device Gait Belt,Front Wheeled Walker Orthotic/Prosthetic Devices or Brace: No Gait Deviations General Gait Pattern Antalgic,Decreased Stride Length,Decreased Feet Clearance,Step-to Gait Factors Limiting Gait Function Factors Limiting Gait Function Decreased Activity Tolerance, Decreased Strength,Limited Range of Motion,Pain,Poor Balance,Poor Safety Awareness M5 PT-IP Objective Assessments Start: 09/24/21 12:32 Freq: NEEDED Status: Discharge Protocol: Document 09/24/21 09:05 AB (Rec: 09/24/21 12:54 AB [email or web address]) Orientation Orientation/Cognition Level of Alertness Alert Orientation Name,Place,Situation Safety Awareness Decreased Safety Awareness Gross Range of Motion Lower Extremity ROM Assessment Left Impaired Impairments L knee flexion: ~ 40 deg PROM L knee extension: 20 deg less to 0 Strength Lower Extremity Strength Assessment Left Impaired Knee 3-/5 Sensation Assessment Sensation Gross Sensation WNL Muscle Tone Muscle Tone WNL Yes M6 PT-IP Treatment Start: 09/24/21 12:32 Freq: NEEDED Status: Discharge Protocol: Document 09/25/21 09:45 AB (Rec: 09/25/21 14:40 AB [email or web address]) Physical Therapy Treatment Exercises Exercises Heel Slides Education Education Provided Safety M7 PT-IP Assessment and Plan Start: 09/24/21 12:32 Freq: NEEDED Status: Discharge Protocol: Document 09/25/21 09:45 AB (Rec: 09/25/21 14:40 AB [id number]) PT Summary Assessment and Plan Potential Rehabilitation Potential Good Summary Impairments Pain,ROM,Strength,Balance, Coordination,Sensation,Tone, Cognition,Bed Mobility, Transfers,Gait,Activity Tolerance Progress Towards Goals Slow Progress due to Pain,Slow Progress due to Activity Tolerance Assessment Summary caregiver training conducted and spouse is able to assist pt safely with mobility. pt may go home when medically stable. Goals Bed Mobility Goal Standby Assistance Transfer Goal Standby Assistance,Front Wheeled Walker Gait Goal Standby Assistance,Front Wheel Walker Gait Distance 125 Days to Meet Goals 5 Frequency of Treatment Frequency Of Treatment Twice a Day Treatment Plan Physical Therapy Treatment Plan Bed Mobility Training,Transfer Training,Gait Training, Therapeutic Exercise,Balance Retraining,Post Op Education, Discharge Planning,Hot or Cold Pack,Neuromuscular Re-ed, Coordination Retraining,Manual Therapy Weight Bearing Status Weight Bearing Status Weight Bear as Tolerated Allowed Weight Bearing Amount (enter % LLE WBAT or #) (%) Recommendations To Nursing Amount of Assist Needed 1 Person Assist Discharge Recommendations PT Discharge Recommendations Home with 12/06 Assist Available,Home Health Transportation Needs at Discharge Private Vehicle
[2021-09-25 12:00] VITALS: BP 142/93; PULSE 110; RESP 16; TEMP 37.6; O2SAT 95
--- NOTE | 2021-09-25 12:35 | PC.NURSE ---
Pt febrile up to 101. Dr Kaufman aware. Encouraged use of cough and deep breathing with IS. Instructed patient that if fever continues with or without chills to call surgeon office Monday to report. Instructed to follow up with PCP regarding blood pressure. Also noted elevated pulse. Dr Kaufman ordered a EKG and it shows ST. He is aware. IV discontinued. All belongings with patient. Wheeled out to car in wheelchair.
[2021-09-25] MEDS: INFLUENZA VACCINE QIV 0.5 ML SYRINGE IM (13:55)
== END 2021-09-25 12:35 | disposition home or self-care (01) ==
LOC: OR 08:38 → AC 12:30
PROVIDERS: Admitting Provider Orthopaedic Surgery; PCP Physician Assistant; Referring Provider Orthopaedic Surgery; Visit Provider Orthopaedic Surgery
PROC: 0SRD0JZ Replacement of Left Knee Joint with Synthetic Substitute, Open Approach (ICD-10-PCS; CPT 27447; principal; 2021-09-23 10:15)
DX: M17.12 Unilateral primary osteoarthritis, left knee (principal); F17.210 Nicotine dependence, cigarettes, uncomplicated; G47.33 Obstructive sleep apnea (adult) (pediatric); Z23 Encounter for immunization
CPT/HCPCS: 27447; 36415; 64450; 73560; 82962; 85014; 85018; 90471; 90656; 93005; 93010; 97116; 97162; 97530; C1776; G0378; C9290; J0690; J2250; J2405; J2704; J3010; Q2038

== ENCOUNTER → 2021-12-30 14:29 | Outpatient (CLI) | payer OTHER, SELFPAY ==
[2021-09-23 13:45] VITALS: BMI 35.2
[2021-12-30 14:59] LABS: Add Manual Diff / Slide Review NO; Basophils Absolute Auto 0 /uL (0-100); Basophils Percent Auto 0.2 % (0-2); Eosinophils Absolute Auto 300 /uL (0-450); Eosinophils Percent Auto 4.1 % (2-4); Hematocrit 46.1 % (41-53); Hemoglobin 15.4 g/dL (13.5-17.5); Lymphocytes Absolute Auto 2200 /uL (1100-4500); Lymphocytes Percent Auto 31.3 % (25-40); Mean Corpuscular HGB Conc 33.5 % (30-36); Mean Corpuscular Volume 83.7 fL (80-100); Monocytes Absolute Auto 500 /uL (0-900); Monocytes Percent Auto 7.3 % (3-14); Neutrophils Absolute Auto 4000 /uL (1500-7000); Neutrophils Percent Auto 57.1 % (50-75); Platelet Count 222 X10^3/uL (150-400); Red Blood Cell Count 5.51 X10^6/uL (4.5-5.9)
[2021-12-30 15:23] LABS: Carbon Dioxide 27 mmol/L (22-32); Chloride 105 mmol/L (98-107); HEMOLYSIS 24 (0-50); Potassium 4.3 mmol/L (3.4-5.1); Sodium 143 mmol/L (137-145)
== END ==
PROVIDERS: PCP Physician Assistant; Referring Provider Orthopaedic Surgery; Visit Provider Orthopaedic Surgery
DX: Z01.818 Encounter for other preprocedural examination (principal); Z01.812 Encounter for preprocedural laboratory examination
CPT/HCPCS: 36415; 80051; 85025; 93005; 93010

== ENCOUNTER → 2022-02-02 10:04 | Outpatient (CLI) | payer OTHER, SELFPAY ==
[2021-09-23 13:45] VITALS: BMI 35.2
[2022-02-02 11:48] LABS: COVID19 -Nasal RAPID Negative (Negative)
== END ==
PROVIDERS: PCP Physician Assistant; Visit Provider Nurse Practitioner Family
DX: Z20.822 Contact with and (suspected) exposure to COVID-19 (principal)
CPT/HCPCS: 87635; C9803

== ENCOUNTER 2022-02-04 10:09 | Day surgery (SDC) | payer OTHER, SELFPAY ==
[2021-09-23 13:45] VITALS: BMI 35.2
[2022-01-27 08:42] VITALS: BMI 34.3
[2022-02-04] VITALS (12 sets, daily range): BP systolic 88–155; BP diastolic 48–104; PULSE 61–94; RESP 12–18; TEMP 35.7–36.9; O2SAT 92–100; BMI 34.3
[2022-02-04] MEDS: ACETAMINOPHEN 325 MG TABLET 975 MG PO (10:53)
[2022-02-04] MEDS: CELECOXIB 200 MG CAPSULE PO (10:54)
[2022-02-04] MEDS: PREGABALIN 75 MG CAPSULE PO (10:54)
[2022-02-04] MEDS: LACTATED RINGERS 1,000 ML 42 ML IV ×2 (11:16→13:30)
--- NOTE | 2022-02-04 12:14 | PM.PREOP ---
Pre-operative Note COVID-19 COVID-19 status: Negative Criteria for continued procedure: Expected advancement of disease process Interval Note History & Physical reviewed/Exam performed by Physician: Yes Changes to H&P: No H&P completed within 30 days and has changed as indicated here:: New H&P today.
--- NOTE | 2022-02-04 12:15 | P.OP_ITS ---
Operative Date/Time/Diagnoses Date of procedure: 02/04/22 Time of procedure: 14:14 Pre-op diagnosis: Right knee osteoarthritis Post-op diagnosis: same Procedure & Clinicians Procedure: Right total knee arthroplasty Same procedure as scheduled: Yes Indications: The patient presents today for total knee arthroplasty after failure of conservative treatment. The nature of the procedure including the risks and benefits, alternatives, postoperative course and expected outcome were discussed and all questions answered. Consent was obtained. Operative site confirmed and marked. Surgeon: Alex Guillen Home Office Claims Examiner: Maria Elena Machado Anesthesia Type: Spinal, Peripheral nerve block and Local Operative Notes Closure Type: primary Specimen(s): none sent Prosthetic devices, grafts, tissues, transplants, or devices: Lund and Nephew [facility] BCS: 4 femoral component, 4 tibial component, 9 mm BCS polyethylene tray and 32 x 9 mm round patella Applied: implant(s) Estimated Blood Loss (mL): 15 Blood products transfused: none Tourniquet time (min): 71 Procedure in detail: The patient was taken to the operative suite and placed under anesthesia. The patient was given prophylactic antibiotics prior to surgery. The patient was also given tranexamic acid, 1 g, just prior to surgery for postoperative hemostasis. The lateral knee was prepped and the joint injected with 20 mL of 1% Lidocaine with epinephrine. The knee was then prepped and draped in usual sterile fashion. The leg was exsanguinated with an Esmarch dressing and the tourniquet raised to 250 torr. A 15 cm anterior incision was made. Next a medial trivector arthrotomy was made. The extensor mechanism was marked to ensure accurate repair. Initial exposing dissection was carried out medially and laterally. The knee was then flexed and the intramedullary femoral guide rhea placed. The distal femoral cut was made in 6? of valgus at the +1 position. The femoral size was measured and the appropriate cutting block was then placed and the anterior, posterior and chamfer cuts made. The intramedullary tibial alignment rhea was then placed. The guide was set to remove approximately 10 mm from the less affected lateral side. The proximal tibial cut was then made with an oscillating saw. All meniscus and bony debris was then removed. Posterior femoral osteophytes removed with a curved osteotome. Flexion extension gaps were checked. There is mild tightness medially which was corrected by percutaneously releasing the MCL with an 18 gauge needle along with standard soft tissue releases. The soft tissues were then injected with a combination of 20 mL of half percent Marcaine with epinephrine and 20 mL of Exparel. The trial components were then placed. The knee was then extended and the patellar thickness was measured and a cut made removing approximately 9 mm of bone. The patella was then sized and drilled. Some excess lateral bone was excised and the patellofemoral ligament released. The knee went into full extension and flexion beyond 130?. There was excellent medial-lateral balance throughout motion. Patellar tracking was excellent. The trial components were removed and the knee was cleansed with Pulsavac irrigation and dried. The final components were cemented with high viscosity vacuum mixed bone cement with antibiotics. The joint was filled with a dilute Betadine solution. The knee was held in extension and the patellar clamped until the cement was adequately cured. The knee was then irrigated. The extensor mechanism was closed with 5 interrupted #1 Vicryl sutures and a running Quill suture at approximately 90 degrees of flexion. The joint was then injected with a combination of 1 g of tranexamic acid and 20 mL of quarter percent Marcaine with epinephrine. The subcutaneous tissue was closed with 2 0 Vicryl. The skin was closed with absorbable subcuticular sutures and surgical adhesive. An Aquacel dressing and Juan Francisco wrap were then applied. The patient tolerated the procedure well and was returned to recovery room in good condition. Complications: none Post-operative Condition: stable Disposition: PACU Plan for aftercare: [facility] Care Protocol.
[2022-02-04] MEDS: CEFAZOLIN 2 GM/20 ML SYRINGE IV ×2 (12:45→20:13)
[2022-02-04] MEDS: LIDOCAINE 1% W/EPI 20 ML INJ (12:55)
[2022-02-04] MEDS: TRANEXAMIC ACID 1,000 MG VIAL 2000 MG INJ ×2 (12:57→13:18)
--- NOTE | 2022-02-04 13:09 | SUR.OPER ---
Supine on padded OR bed. Pillow under head, arms secured on padded armboards <90 degree abduction. Safety belt across torso. Non-operative leg secured with tape over blanket over lower leg. Operative leg secured in DeMayo/Buddy/Nathe positioner. Foam padded brace at thigh of operative leg.
[2022-02-04] MEDS: BUPIVACAINE 0.25% (PF) 60 ML, EPINEPHrine 0.3 MG INJ (13:16)
[2022-02-04] MEDS: BUPIVACAINE 0.25% W/ EPI (PF) 40 ML, BUPIVACAINE LIPOSOME 266 MG, SODIUM CHLORIDE 0.9% ... INJ (13:35)
--- NOTE | 2022-02-04 15:48 | SUR.PHASEI ---
Report called to Le GRAYSON. Opportunity for questions given. return phone number at time of report [phone]. Pt being transferred to 221. Pt updated on plan of care and is agreeable.
--- NOTE | 2022-02-04 16:33 | PC.NURSE ---
Patient arrived to the floor around 1600. He had a total r.knee surgery. Jose Manuel has an aquacel in place with an jose wrap that is cdi. Patient had a duromorph spinal and he has feeling to both legs and he feels light touch to his bilateral feet. He is diabetic and takes metformin. Patient skin is clear accept for the incision and he has dry bilateral feet. Jose Manuel denies nausea and is tolerating ice water well.
[2022-02-04] MEDS: LACTATED RINGERS 1,000 ML 100 ML IV (16:52)
[2022-02-04] MEDS: ACETAMINOPHEN 325 MG TABLET 650 MG PO ×2 (16:53→20:12)
[2022-02-04] MEDS: ATORVASTATIN 20 MG TABLET 10 MG PO (20:12)
[2022-02-04] MEDS: METFORMIN HCL 500 MG TABLET PO (20:12)
[2022-02-04] MEDS: ASPIRIN EC 81 MG TABLET PO (20:12)
[2022-02-04] MEDS: DOCUSATE 100 MG CAPSULE PO (20:12)
[2022-02-05] VITALS: BP 124/81; PULSE 81; RESP 17; TEMP 36.4; O2SAT 96
[2022-02-05] MEDS: LACTATED RINGERS 1,000 ML 100 ML IV (00:10)
[2022-02-05 03:58] VITALS: BP 132/84; PULSE 75; RESP 17; TEMP 36.7; O2SAT 96
[2022-02-05 05:26] LABS: Hematocrit 41.3 % (41-53); Hemoglobin 13.8 g/dL (13.5-17.5)
[2022-02-05] MEDS: CEFAZOLIN 2 GM/20 ML SYRINGE IV (06:00)
[2022-02-05] MEDS: PANTOPRAZOLE DR 20 MG TABLET PO (06:07)
[2022-02-05 07:45] VITALS: BP 135/81; PULSE 82; RESP 16; TEMP 36.7; O2SAT 96
[2022-02-05] MEDS: DOCUSATE 100 MG CAPSULE PO (08:37)
[2022-02-05] MEDS: ASPIRIN EC 81 MG TABLET PO (08:37)
[2022-02-05] MEDS: hydroCHLOROthiazide 25 MG TABLET PO (08:37)
[2022-02-05] MEDS: ACETAMINOPHEN 325 MG TABLET 650 MG PO (08:37)
[2022-02-05] MEDS: lisinopriL 20 MG TABLET 40 MG PO (08:37)
--- NOTE | 2022-02-05 08:43 | PM.DS.1 ---
History of Present Illness History of Present Illness Date Patient Seen: 02/05/22 Time Patient Seen: 08:43 Chief complaint: Knee pain Narrative: Right knee pain is mild. Denies fever or chills. No nausea vomiting. Patient does have assistance at home. Discharge Providers Provider Discharge Date: 02/05/22 Primary care physician: Duke Barr PA-C Consults: 02/04/22 16:08 Consult to Discharge Planning Routine Comment: Consult to Physical Therapy Evaluate & Treat Comment: Physician Instructions: postop TKA protocol Consult to Respiratory Therapy Evaluate & Treat Comment: Physician Instructions: Evaluate and treat Discharge provider: Brennan Lomeli PA-C Summary Hospital Course Discharge Diagnosis: Severe right knee osteoarthritis Hospital Course: Procedure: Right total knee arthroplasty Same procedure as scheduled: Yes Indications: The patient presents today for total knee arthroplasty after failure of conservative treatment.? The nature of the procedure including the risks and benefits, alternatives, postoperative course and expected outcome were discussed and all questions answered.? Consent was obtained.? Operative site confirmed and marked. Surgeon: Alex Guillen Cnc Router Operator: Maria Elena Machado Anesthesia Type: Spinal, Peripheral nerve block and Local Operative Notes Closure Type: primary Specimen(s): none sent Prosthetic devices, grafts, tissues, transplants, or devices: Lund and Nephew Anat BCS: 4 femoral component, 4 tibial component, 9 mm BCS polyethylene tray and 32 x 9 mm round patella Applied: implant(s) Estimated Blood Loss (mL): 15 Blood products transfused: none Tourniquet time (min): 71 Patient admitted to the hospital for right total knee arthroplasty. Patient consented to the same. Patient taken to the operating room underwent right total knee arthroplasty February 04, 2022. Patient back in his room recovering well as in stable condition. Patient will mobilize with physical therapy and be discharged home today in stable condition. Status at Discharge Cognitive/behavioral status at discharge: at baseline, oriented Functional status at discharge: uses cane/walker Overall status at discharge: patient is progressing back to baseline Exam Vital Signs (past 8 hours): - 02/05/22 03:58 Temperature 98.1 F Pulse Rate 75 Respiratory Rate 17 Blood Pressure 132/84 Pulse Oximetry 96 Oxygen Delivery Method Room Air Oxygen Flow Rate 0 Narrative Exam Narrative: 56-year-old male resting comfortably in bed in no apparent distress. Right knee dressing is Clean, dry, intact.. Motor functions intact distal bilateral lower extremities. Sensation grossly intact to light touch bilateral lower extremities. Objective Labs Result Diagrams: 02/05/22 04:50 Labs: Laboratory Results - last 24 hr 02/05/22 04:50 Hgb 13.8 Hct 41.3 PFSH Medical History Cerebral cavernous malformation Encephalomalacia GERD (gastroesophageal reflux disease) HLD (hyperlipidemia) HTN (hypertension) ICH (intracerebral hemorrhage) (05/2020) Nasal polyps DIANNE on CPAP Osteoarthritis Pre-diabetes Surgical History History of total left knee replacement (09/23/21) Hx of arthroscopy of left knee Hx of arthroscopy of right knee Hx of bilateral cataract extraction Hx of tooth extraction (~05/2021) Social History household members: spouse and children Smoking Status: Former smoker alcohol intake: current Discharge Assessment & Plan Assessment and Plan Assessment: Patient progressing as expected status post right total knee arthroplasty Plan of Treatment: Mobilize with physical therapy Multimodal pain management Discharge home today after PT is safe for home environment Discharge Plan Discharge Plan Patient Disposition: Home Discharge orders & Medications Discharge Orders: Discharge (Order); Ordered 02/05/22 Ordered By: Brennan Lomeli Prescriptions: New acetaminophen 325 mg Tablet 650 mg PO TID Qty: 60 0RF polyethylene glycol 3350 17 gram Powder In Packet 17 gm PO DAILY PRN (Reason: Constipation) Qty: 20 0RF aspirin 81 mg Tablet,Delayed Release (Dr/Ec) 81 mg PO BID Qty: 60 0RF docusate sodium 100 mg Capsule 100 mg PO BID Qty: 20 0RF oxycodone 10 mg Tablet 10 mg PO Q3HR PRN (Reason: Pain, Severe (7-10)) Qty: 60 0RF Continued metformin 500 mg Tablet 500 mg PO BEDTIME 0RF meloxicam 15 mg Tablet 15 mg PO DAILY 0RF sildenafil [Viagra] 100 mg Tablet 100 mg PO DAILY PRN (Reason: Sexual Activity) 0RF simvastatin 20 mg Tablet 20 mg PO BEDTIME 0RF omeprazole 20 mg Capsule,Delayed Release(Dr/Ec) 20 mg PO DAILY 0RF hydrochlorothiazide 25 mg Tablet 25 mg PO DAILY 0RF lisinopril 40 mg Tablet 40 mg PO DAILY 0RF fluticasone propionate 50 mcg/actuation [place],Suspension 1 spray INTRANASAL BID PRN (Reason: Seasonal allergies) 0RF Discontinued acetaminophen 500 mg capsule 500 mg PO Q4H MDD Max 6 tabs per day PRN (Reason: fever or pain) Qty: 90 0RF Medication counseling provided by Pharmacist: No Follow up/Referrals: Duke Barr PA-C [Primary Care Provider] - Alex Guillen MD [Physician] - 2 Weeks Diet/Activity/Treatments Diet: Diet as Tolerated Activity: May progress activity and weight-bearing as tolerated. Cold/Heat Therapy: May ice the knee for 20 minutes at a time for pain and swelling. Other treatments: Use ibuprofen 400 mg and Tylenol 500 mg every 4 hours as needed for pain. Use this in addition to prescribe narcotics. Skin/Wound/Dressing Care Report to your healthcare provider any signs of infection, such as:: chills, fever, increased pain, unusual drainage and unusual redness Dressing: Leave dressing in place until follow-up. May shower over dressing as long as remains intact. Visit Report/Discharge Packet Instructions: DI for Knee Replacement Stand Alone Forms: Surgery Discharge Discharge Data Primary Care Provider: Duke Barr Attending Provider: Alex Guillen Quality VTE Deep Vein Thrombosis/Pulmonary Embolism Present on Admission: No
--- NOTE | 2022-02-05 09:31 | PC.NURSE ---
Assess-Patient is alert and oriented x3, he states that his pain level to that r.knee is a 3/10. Patient given tylenol and seems to be helpful for his discomfort. Dressing is cdi with aquacel and jose wrap. Patient to work with physical therapy and then will be discharged to home if all goes well.
--- NOTE | 2022-02-05 10:50 | PT.IIE ---
Current Diagnoses Unilateral primary osteoarthritis, right knee (02/04/22) Presence of left artificial knee joint (02/04/22) Surgery Performed Operation Date: 02/04/22 12:00 Actual Procedures p Total Knee Arthroplasty(Right) - Alex Guillen MD Medical History (Last Reviewed 02/05/22 @ 08:45 by Brennan Lomeli PA-C) Cerebral cavernous malformation Encephalomalacia GERD (gastroesophageal reflux disease) HLD (hyperlipidemia) HTN (hypertension) ICH (intracerebral hemorrhage) (05/2020) Nasal polyps DIANNE on CPAP Osteoarthritis Pre-diabetes Physical Therapy Inpatient Evaluation/Re-Eval M1 PT/OT-IP Prior Functional Status Start: 02/05/22 14:37 Freq: NEEDED Status: Active Protocol: Document 02/05/22 10:50 AB (Rec: 02/05/22 14:46 AB [id number]) Medical Review Prior Functional Status Medical History Reviewed Yes Communication able to make needs known Mobility and Gait pt stated that he is independent with all mobilities and ambulation without AD Social History Household Members spouse,children Living Arrangements House Number of Floors (Floors) 3 or More Floors Number of Stairs To Enter/Railing? pt will stay on first level of the house and has no steps to enter Home Environment Standard Height Toilet,Walk in Shower,Built-In Shower Seat Home Equipment Front Wheel Walker,Straight Cane,Grab Bars In Shower M2 PT-IP Current Condition Start: 02/05/22 14:37 Freq: NEEDED Status: Active Protocol: Document 02/05/22 10:50 AB (Rec: 02/05/22 14:46 AB [id number]) Physical Therapy Current Condition Current Condition Evaluation Date 02/05/22 Treatment Diagnosis s/p R TKA; difficulty in walking Onset Date 02/04/22 M3 PT-IP Subjective Start: 02/05/22 14:37 Freq: NEEDED Status: Active Protocol: Document 02/05/22 10:50 AB (Rec: 02/05/22 14:46 AB [id number]) Subjective Physical Therapy Visit Type Type Initial Evaluation Visit Start Time 10:50 Visit Stop Time 11:20 Total Visit Minutes 30 Number of PUBLIC ADDRESS SYSTEM INSTALLER Visits 0 Physical Therapy Visit Comments Patient Comments agreeable to do PT Therapy Pain Assessment Pain When Pain Assessed At Rest Pain Present Pain Present Pain Reported Location r knee Intensity 3 Scale Used Numeric (0 - 10) Pain Management Techniques Apply Cold,Distraction, Modification of Treatment,Re- positioning,Timing of Activity with Medications M4 PT-IP Mobility and Gait Start: 02/05/22 14:37 Freq: NEEDED Status: Active Protocol: Document 02/05/22 10:50 AB (Rec: 02/05/22 14:46 AB [id number]) PT-Bed Mobility Assessment Supine to Sit Supine to Sit Standby Assistance PT-Transfer Assessment Sit to and From Stand Sit to and from Stand Standby Assistance,Contact Guard Assistance,1 Person Assistance,Use of Upper Extremities Equipment Transfer Assistive Device Gait Belt,Front Wheeled Walker Orthotic/Prosthetic Devices or Brace: No Transfers Transfer Destination Chair Transfer Technique ambulated Transfer Ability Level of Assist Standby Assistance,Contact Guard Assistance,1 Person Assistance,Use of Upper Extremities Comments Mobility Comments pt completed supine to sit SBA and used bed rail to assist. pt stated that he has a lever next to his bed to use. pt completed sit to stand SBA to CGA and ambulated ~ 50 ft using FWW SBA to CGA. pt agreed to sit up on chair. positioned on chair. call light and table placed within reach. Gait Assessment Gait Gait Assistance Required: Standby Assistance,Contact Guard Assist Distance (Feet) 50 Able to Maintain Weight Bearing Status Yes During Gait Assistive Devices Assistive Device Gait Belt,Front Wheeled Walker Orthotic/Prosthetic Devices or Brace: No Gait Deviations General Gait Pattern Antalgic,Decreased Stride Length,Decreased Feet Clearance Factors Limiting Gait Function Factors Limiting Gait Function Decreased Activity Tolerance, Decreased Strength,Limited Range of Motion,Pain,Poor Balance,Poor Safety Awareness PT-Balance Assessment Sitting Balance and Reactions Static Sitting Balance Ability Good Dynamic Sitting Balance Ability Good Standing Balance and Reactions Static Standing Balance Ability Fair Dynamic Standing Balance Ability Fair Device Used FWW M5 PT-IP Objective Assessments Start: 02/05/22 14:37 Freq: NEEDED Status: Active Protocol: Document 02/05/22 10:50 AB (Rec: 02/05/22 14:46 AB [email or web address]) Orientation Orientation/Cognition Level of Alertness Alert Orientation Name,Place,Situation Language Function Ability No Deficits Noted Safety Awareness Understands Safety Issues Memory Description No Deficits Noted Gross Range of Motion Lower Extremity ROM Impairments R knee flexion: ~80 deg Strength Lower Extremity Strength Assessment Right Impaired Hip 3+/5 Knee 3+/5 Coordination Assessment Gross Coordination Gross Coordination WNL Sensation Assessment Sensation Gross Sensation WNL Muscle Tone Muscle Tone WNL Yes M6 PT-IP Treatment Start: 02/05/22 14:37 Freq: NEEDED Status: Active Protocol: Document 02/05/22 10:50 AB (Rec: 02/05/22 14:46 AB [id number]) Physical Therapy Treatment Education Education Provided Precautions,Weight Bearing Status,Post-Op Packet,Safety M7 PT-IP Assessment and Plan Start: 02/05/22 14:37 Freq: NEEDED Status: Active Protocol: Document 02/05/22 10:50 AB (Rec: 02/05/22 14:46 AB [email or web address]) PT Summary Assessment and Plan Potential Rehabilitation Potential Good Status of Condition at Evaluation Stable Summary Impairments Pain,ROM,Strength,Balance, Coordination,Sensation,Tone, Cognition,Bed Mobility, Transfers,Gait,Activity Tolerance Assessment Summary pt requiring SBA to CGA with mobility using FWW and will have his spouse to assist him at home. pt has outpt PT set up. pt may go home when medically stable. Goals Bed Mobility Goal Independent Transfer Goal Independent,Front Wheeled Walker Gait Goal Independent,Front Wheel Walker Gait Distance 250 Days to Meet Goals 5 Frequency of Treatment Frequency Of Treatment Twice a Day Treatment Plan Physical Therapy Treatment Plan Bed Mobility Training,Transfer Training,Gait Training, Therapeutic Exercise,Balance Retraining,Post Op Education, Discharge Planning,Hot or Cold Pack,Neuromuscular Re-ed, Coordination Retraining,Manual Therapy Weight Bearing Status Weight Bearing Status Weight Bear as Tolerated Allowed Weight Bearing Amount (enter % RLE WBAT or #) (%) Recommendations To Nursing Amount of Assist Needed 1 Person Assist Discharge Recommendations PT Discharge Recommendations Home with Assistance, Outpatient PT Transportation Needs at Discharge Private Vehicle
--- NOTE | 2022-02-05 11:36 | CM.DANOTE ---
DCP/Assessment: Reviewed chart. Patient is a 56yr old male admitted to [facility] for left TKA performed on 02-[address] Guillen. PCP listed is Dr. Barr. Primary payor is 1Franc[employer]. [employer] ORDER met with dinorah explained role. Patient alert and oriented at time of visit. Patient has been seen by therapy and cleared. Patient does report that he uses cane as needed prior to surgery, all other DME patient has at home. Patient reports that has outpatient therapy scheduled. Patient reports no questions or concerns about discharging home today. P: Home today with family support and outpatient therapy follow up. [facility] Discharge Planning/Care Management CM Discharge Assessment Start: 02/05/22 11:29 Freq: Status: Active Protocol: Document 02/05/22 11:29 KJ (Rec: 02/05/22 11:36 [facility] [id number]) Discharge Planning Assessment Assigned Counter Tender ELANA Oliver Contact Information Dotty Lee (spouse) # [phone] Advance Directives? No History Provided By Patient,Medical Record Prior Living Arrangements House Household Members spouse,children Type of transporation used prior to Drives own vehicle admit Independent with ADL's Yes Is patient alert and oriented? Yes Caregiver for Another Yes DME Already Rented / Owned FWW / Walker Comment Uses CPAP at night. Patient/Family Preference OP PT Therapy Barriers to Discharge No Discharge Plan Home Transportation Arrangement Family Referrals Initiated None needed Review Status In Process Next Review Type Continued Stay Review Pre-Anesthesia Assessment Start: 01/27/22 08:42 Freq: Status: Complete Protocol: Document 01/27/22 08:42 CAB (Rec: 01/27/22 09:21 CAB [id number]) Pre-Anesthesia Assessment Patient Information Reviewed Via Phone Assessment Assessment Completed With Patient Diagnostic Results CBC,Electrolytes Comment Labs @ [facility] 12/30/21, COVID screen @ -needs to schedule Primary Care Provider Duke Barr Seen Specialist in Last 12 Months Yes Specialist Seen Opthamologist/Associate Software Application Engineer, Orthopedist,Other Primary Language Ukrainian Preferred Language Ukrainian Steam Drier Tender Required No Height 162.56 cm Weight 90.718 kg Body Mass Index (BMI) 34.3 Hearing Ability Normal Visual Assist Glasses Dentition Type Teeth, Natural Present Barriers to Learning Auditory Other Aids Yes: CPAP Hx Anesthesia Reactions No Hx Family Anesthesia Reaction No Hx Malignant Hyperthermia No Hx Blood Transfusions No Anesthesia Review Requested No alcohol intake current alcohol intake frequency a few times a month Smoking Status Never smoker Substance Use Type marijuana Comment Pt advised not to smoke marijuana 24 hours prior Pain Present Pain Reported Musculoskeletal Symptoms Abnormal Gait,Difficulty Walking,Joint Pain History of Falling (Recent or History of No ) Patient is completely paralyzed or No completely immobile Mental Status Oriented to own ability Is patient on oxygen? No Does patient have ALMONTE/SOB No Hx Sleep Apnea Yes CPAP/BIPAP use prescribed and used routinely Will Bring CPAP/BIPAP DOS Yes Currently Taking a Beta Staci No Can You Climb a Flight of Stairs Without Yes SOB Hx Chest Pain No Hx SOB No Hx Syncope or Dizziness No Anti-Coagulant Therapy No Has a Dent Remover No Cardiac Testing No Hx Pacemaker/ICD No Pacemaker Rep Required? No Cardiac Clearance Received Not Applicable Diet Type At Home Regular dysphagia No Urinary Catheter Present No Hx Urinary Self Catheterization No Diabetes No: Pre-diabetes per pt, takes metformin Hx Drug Resistant Organism No Presence of External or Internal Medical Yes: Bilat IOLs, CPAP, left Devices knee Received a COVID vaccine? Yes: J&J Received all doses? Yes Marital Status Lives With spouse,children Prior Living Arrangements House Support System Spouse Does the Patient Have Assistance After Yes Surgery Patient Discharge Plan Description Return Home Feels Safe in Current Environment Yes Been Physically Hurt or Threatened By a No Person in Current Environment Do you have thoughts of harming yourself None or others? Are you currently considering suicide? No Do you have a plan to hurt yourself or No Plan others? Do You Have Any Spiritual Beliefs That No May Affect Your HC Choices? Do You Have Any Cultural Practices That No May Affect Your HC Choices? Comment Denominational Who Can We Speak to About Patient's Care Family, friends Identifying Code for Release of Patient Declines to issue Information Health Care Proxy/Next of Kin Gretel () Health Care Proxy Emergency Contact Name Gretel () Emergency Contact Advance Directives? No Power of Kettle Coordinator No PAC Instructions Bring CPAP/BIPAP,Medications to take/avoid,Nasal antibiotic ,No ETOH/petroleum product on skin DOS,NPO,Post-op transportation,Sturdy shoes/ comfortable clothes,Do not bring valuables and remove jewelry
[2022-02-05] MEDS: OXYCODONE IR 5 MG TABLET PO (13:05)
== END 2022-02-05 13:28 | disposition home or self-care (01) ==
LOC: OR 10:09 → AC 16:02
PROVIDERS: PCP Physician Assistant; Referring Provider Orthopaedic Surgery; Visit Provider Orthopaedic Surgery
PROC: 0SRC0JZ Replacement of Right Knee Joint with Synthetic Substitute, Open Approach (ICD-10-PCS; CPT 27447; principal; 2022-02-04 12:00)
DX: M17.11 Unilateral primary osteoarthritis, right knee (principal); K21.9 Gastro-esophageal reflux disease without esophagitis; I10 Essential (primary) hypertension; G47.33 Obstructive sleep apnea (adult) (pediatric); R73.03 Prediabetes; Z79.84 Long term (current) use of oral hypoglycemic drugs
CPT/HCPCS: 27447; 36415; 82962; 85014; 85018; 97161; C1776; C9290; J0171; J0690; J1100; J2250; J2274; J2405; J2704; J3010

== ENCOUNTER 2024-09-02 11:18 | Day surgery (SDC) | payer OTHER, SELFPAY ==
[2022-02-04 16:47] VITALS: BMI 34.3
--- NOTE | 2024-09-02 | PATH_ITS ---
[facility] Accession Number: [id number] No. of containers..02 Tissue . 01 Material submitted: . PART A: colon - TRANSVERSE POLYP PART B: colon - 30 . 01 Diagnosis: A. TRANSVERSE COLON, POLYPECTOMY: Tubular adenoma. - B. COLON AT 30 CM: Tubular adenoma. I 09/04/2024 1552 Local . 01 Electronically signed: . Antonino Love MD, Pathologist NPI- [id number] . 01 Gross description: . Part A: TRANSVERSE POLYP: Received in formalin is 1 fragment(s) of huston, soft tissue measuring 0.3 x 0.3 x 0.3 cm submitted entirely in 1 cassette(s) Part B: 30: Received in formalin is 1 fragment(s) of huston, soft tissue measuring 0.5 x 0.4 x 0.4 cm submitted entirely in 1 cassette(s) /OZ 09/03/2024 2343 Local . 01 Pathologist provided ICD-10: Z80.0, Z86.0100 . 01 CPT . 685387, [id number] Specimen Comment: A courtesy copy of this report has been sent to [phone] Performed at: [address] [facility] [address], [place], [place] [id number] MD Alex Rausch MD Phone: [phone]
[2024-09-02 11:35] VITALS: BP 135/89; PULSE 86; RESP 16; TEMP 36.2; O2SAT 98
--- NOTE | 2024-09-02 12:30 | PM.HP.1 ---
History of Present Illness History of Present Illness Date Patient Seen: 09/02/24 Chief complaint: SDC Narrative: History of colon polyps with recall in 3 years. Rule out recurrent polyps. [facility] Medical History Cerebral cavernous malformation Encephalomalacia GERD (gastroesophageal reflux disease) HLD (hyperlipidemia) HTN (hypertension) ICH (intracerebral hemorrhage) (05/2020) Nasal polyps DIANNE on CPAP Osteoarthritis Pre-diabetes Surgical History History of total left knee replacement (09/23/21) Hx of arthroscopy of left knee Hx of arthroscopy of right knee Hx of bilateral cataract extraction Hx of tooth extraction (~05/2021) Social History household members: spouse and children Smoking Status: Former smoker alcohol intake: current Meds Home Medications and Allergies Home Medications Medication Instructions Recorded Confirmed Type fluticasone propionate 50 1 spray intranasal BID PRN 09/16/21 02/04/22 History mcg/actuation nasal Seasonal allergies spray,suspension hydrochlorothiazide 25 mg tablet 25 mg PO DAILY 09/16/21 02/04/22 History lisinopril 40 mg tablet 40 mg PO DAILY 09/16/21 02/04/22 History meloxicam 15 mg tablet 15 mg PO DAILY 09/16/21 02/04/22 History metformin 500 mg tablet 500 mg PO BEDTIME 09/16/21 09/02/24 History omeprazole 20 mg capsule,delayed 20 mg PO DAILY 09/16/21 02/04/22 History release sildenafil 100 mg tablet (Viagra) 100 mg PO DAILY PRN Sexual Activity 09/16/21 02/04/22 History simvastatin 20 mg tablet 20 mg PO BEDTIME 09/16/21 02/04/22 History acetaminophen 325 mg tablet 650 mg (2 x 325 mg) PO TID #60 tabs 02/05/22 Rx aspirin 81 mg tablet,delayed 81 mg PO BID #60 tabs 02/05/22 Rx release docusate sodium 100 mg capsule 100 mg PO BID #20 caps 02/05/22 Rx oxycodone 10 mg tablet 10 mg PO Q3HR PRN Pain, Severe 02/05/22 Rx (7-10) #60 tabs Allergies Allergy/AdvReac Type Severity Reaction Status Date / Time No Known Drug Allergies Allergy Verified 09/02/24 11:34 Exam Vital Signs (past 8 hours): - 09/02/24 11:35 Temperature 97.1 F L Pulse Rate 86 Respiratory Rate 16 Blood Pressure 135/89 Pulse Oximetry 98 Oxygen Delivery Method Room Air Oxygen Delivery Method Room Air Narrative Exam Narrative: Oropharynx free of lesions Chest clear to auscultation percussion Cardiac exam reveals no S3 or murmur Assessment & Plan Assessment & Plan narrative: History of colon polyps and follow-up at a 3 year interval. Risks, benefits, alternatives have been explained colonoscopy Time-Based Coding :: [TOTAL MINUTES] spent with patient and on the chart (including review of chart, obtaining history, exam, reviewing outside data, placing orders, documenting exam and treatment plan, and counseling patient) on [DATE].
--- NOTE | 2024-09-02 12:31 | P.OP.COLON_ITS ---
Operative Date/Time/Diagnoses Date of procedure: 09/02/24 Pre-op diagnosis: See indication and findings Procedure & Clinicians Study performed: Colonoscopy Indications: History of polyps last colonoscopy 3 years ago Surgeon: Mike Kelly Procedure Notes Procedure in detail: After informed consent was obtained the patient was placed in left lateral decubitus position. The video colonoscope was introduced the rectum and slowly advanced cecum. Preparation was good. On slow withdrawal mucosa was carefully examined. The scope was removed. The patient tolerated procedure well. Blood loss none Complications none Sedation mac Findings 1. 5 mm sessile polyp in the transverse colon Jumbo biopsy removed completely 2. 8 mm sessile polyp at 30 cm hot standard removed completely 3. Otherwise negative colonoscopy to cecum Will be in touch regarding pathology new and appropriate interval which should p robably be 3 years.
[2024-09-02 12:59] VITALS: BP 123/71; PULSE 77; RESP 22; TEMP 36.8; O2SAT 95
[2024-09-02 13:04] VITALS: BP 106/86; PULSE 76; RESP 19; O2SAT 95
[2024-09-02 13:13] VITALS: BP 136/81; PULSE 80; RESP 15; O2SAT 95
[2024-09-02 13:18] VITALS: BP 130/83; PULSE 76; RESP 20; O2SAT 97
[2024-09-02 13:23] VITALS: BP 113/77; PULSE 63; RESP 11; TEMP 36.8; O2SAT 97
== END 2024-09-02 13:41 | disposition home or self-care (01) ==
PROVIDERS: Referring Provider Internal Medicine Gastroenterology; Visit Provider Internal Medicine Gastroenterology
PROC: 0DJD8ZZ Inspection of Lower Intestinal Tract, Via Natural or Artificial Opening Endoscopic (ICD-10-PCS; CPT 45378; principal; 2024-09-02 12:30)
DX: Z12.11 Encounter for screening for malignant neoplasm of colon (principal); Z86.0100 Personal history of colon polyps, unspecified; D12.3 Benign neoplasm of transverse colon; D12.6 Benign neoplasm of colon, unspecified
CPT/HCPCS: 45384; 45380; J2704